=== PATIENT | female | born 1995 | race Caucasian/White ===

== ENCOUNTER 2019-01-10 14:41 | Emergency (ER) | payer SELFPAY ==
[2019-01-10] VITALS (7 sets, daily range): BP systolic 119–149; BP diastolic 56–75; PULSE 64–129; RESP 15–18; TEMP 37.5–39.3; O2SAT 95–100; BMI 36.8
--- NOTE | 2019-01-10 15:19 | US_ITS ---
STUDY: FIRST TRIMESTER OBSTETRICAL ULTRASOUND REASON FOR EXAM: Female, 23 years old. Low back pain LMP: TECHNIQUE: Transvaginal TECHNICAL QUALITY: Adequate. PRIOR ULTRASOUND: None. FINDINGS: There is a very small linear fluid density within the endometrial canal in association with soft tissue density possibly representing focal adhesion.. No well-defined intrauterine gestational sac is noted. The uterus measures 9.6 x 6.3 x 5.6 cm. There is no demonstrated uterine fibroid. The cervix is closed. The right ovary measures 2.5 x 1.6 x 1.6 cm. There is no right ovarian cyst. There is no visualized right adnexal mass or complex lesion. The left ovary measures 3 x 2.2 x 2.3 cm. There is a questionable cystic structure but no definitive evidence for ectopic There is no visualized left adnexal mass or complex lesion. There is minimal fluid in the cul de sac. US/Transvaginal w/Preg US IMPRESSION: No definitive evidence for intrauterine gestation or ectopic however would recommend clinical correlation and follow-up studies minimal fluid in the cul-de-sac Electronically Signed: Chris Prado MD at 17:56 EST , Service support ,
--- NOTE | 2019-01-10 15:22 | ED.VISSUMM ---
- ER Visit Summary Date of Service: 01/10/19 Chief Complaint: Not feeling well History of Present Illness: The patient is a 23 F presenting stating that she has not felt well for the past couple of days. She went to urgent care today and they sent her into the ED for concern of kidney infection. She states that she has had dysuria and hematuria. She had fever at home. She has had nausea vomiting. She denies abdominal or pelvic pain. She has low back pain. She recently found out that she is . Her last period was December 12. She is (twins). Physical Examination: Vitals are stable. Temperature 99.5. Alert no acute distress. HEENT exam is unremarkable. Neck is supple. No meningismus Lungs are clear and equal bilaterally. Heart is regular rate and rhythm. Abdomen is soft nontender nondistended. No guarding or rebound. Back: Nontender Extremities are unremarkable. Skin is warm and dry. No focal neurologic deficit. Remainder of exam is unremarkable. Emergency Department Course and Treatment: Patient was given IV fluids, Zofran. Repeat temperature 102.5. She was given Tylenol. Urinalysis shows over 100 white blood cells, 0 red blood cells. Blood type is B-. She has had no vaginal bleeding. HCG quant is 331. Pelvic ultrasound shows no definitive evidence for intrauterine gestation or ectopic however would recommend clinical correlation and follow-up studies minimal fluid in the cul-de-sac. Patient is feeling improved other than headache. She was given Reglan Benadryl IV and additional IV fluids with improvement. Urine culture was sent. She was given Rocephin IV. On reevaluation, she is resting comfortably and is feeling improved. She was given prescription for Keflex. 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 Advised return to ED if worsening complaints. Disposition: Discharge home Impression: Pyelonephritis, This note was generated with [employer] dictation software. It may contain incorrect words, spelling, and punctuation that were not noted in review of the chart prior to signing ED Disposition - Plan for ED Patient: Instructions: ED UTI Cystitis Female Prescriptions: Cephalexin [Keflex] 500 mg PO Q6 #40 capsule Referrals: [facility] Doctor,Out of [NON-STAFF] -
[2019-01-10 16:03] LABS: Mucous, Urine 0 SEEN /hpf (<or=2+); Red Blood Cells-Urine 0 SEEN /hpf (0-5)
[2019-01-10] MEDS: 0.9% Normal Saline 1,000 ML 999 ML IV ×2 (16:03→18:00)
[2019-01-10] MEDS: Ondansetron 4 MG/2 ML Vial IV (16:03)
[2019-01-10 16:06] LABS: Color, Urine Yellow (Yellow); Glucose, Dipstick Normal (Normal); Ketone-Dipstick Negative (Negative); Leukocyte Esterase-Dipstick 500 /ul (Negative); Nitrite-Dipstick Positive (Negative); Occult Blood-Urine 150 /ul (Negative); Protein-Dipstick 100 mg/dl (Negative); Urine Bilirubin Dipstick Negative (Negative); Urine Clarity Cloudy (Clear); Urine Urobilinogen 1 mg/dl (Normal)
[2019-01-10 16:47] LABS: Bacteria 1+ /hpf (None Seen); Squamous Epithelial Cells - UA 0-5 SEEN /hpf (5-10); White Blood Cells >100 SEEN /hpf (0-5)
[2019-01-10 17:11] LABS: hCG Titer Quant., Serum 331 mIU/mL (<9 non-preg)
[2019-01-10] MEDS: Acetaminophen 500 MG Tablet 1000 MG PO (17:13)
--- NOTE | 2019-01-10 18:30 | ED.DEP ---
ED Disposition - Plan for ED Patient: Instructions: ED UTI Cystitis Female Prescriptions: Cephalexin [Keflex] 500 mg PO Q6 #40 capsule Referrals: [facility] Doctor,Out of [NON-STAFF] -
[2019-01-10] MEDS: Metoclopramide 10 MG/2 ML Vial 5 MG IV (18:50)
[2019-01-10] MEDS: DiphenhydrAMINE 50 MG/ML Syringe 25 MG IV (18:50)
[2019-01-10] MEDS: Ceftriaxone 1 GM/50 ML BAG IV (18:58)
== END 2019-01-10 19:50 | disposition home or self-care (01) ==
LOC: ED 15:35
PROVIDERS: Emergency Provider Emergency Medicine
DX: O23.00 Infections of kidney in pregnancy, unspecified trimester (principal); O99.89 Other specified diseases and conditions complicating pregnancy, childbirth and the puerperium; R51 Headache; Z3A.00 Weeks of gestation of pregnancy not specified
CPT/HCPCS: 76817; 81001; 84702; 86900; 86901; 87086; 87088; 87186; 96361; 96374; 96375; 99282; J7030; A4216; J2405

== ENCOUNTER → 2022-09-02 | Outpatient (CLI) | payer SELFPAY ==
--- NOTE | 2022-09-02 09:00 | PET_ITS ---
EXAMINATION: FDG PET-CT INDICATIONS: A 27-year-old female with a history of thyroid carcinoma presenting for restaging examination. COMPARISON EXAMINATION: None available INDEX LESION SIZE SUV INTERPRETATION Right upper lung, right upper lobe 40.6 mm 2.5 Fulfills quantitative criteria for viable neoplasm with single point technique, histopathologic analysis recommended. Right lung, right upper lobe 1.1 max Quantitative criteria for viable neoplasm are not fulfilled. TECHNIQUE: Following the intravenous administration of 11.40 mCi of F-18 deoxyglucose via the right hand, multiplanar image acquisitions of the head, neck, chest, abdomen and pelvis to level of mid-thigh, lower extremities obtained at one hour post radiopharmaceutical administration contemporaneously interpreted with the current CT of the head, neck, chest, abdomen and pelvis to level of mid-thigh, lower extremities dated 09/02/22 via coregistration reveal: SERUM GLUCOSE LEVEL: 106 mg/dl. HEIGHT: 69 inches. WEIGHT: 280 lbs. FINDINGS: Head/Neck: Prominent radiopharmaceutical concentration is defined in the anterior neck, laryngeal structures which appears associated with the arytenoid cartilage and cricopharyngeus musculature without evidence of soft tissue thickening commensurate with normal physiologic uptake. The visualized portion of the cerebral cortical-subcortical structures demonstrate symmetric and preserved glucose metabolism. CHEST: Increased radiopharmaceutical concentration is identified in the right suprahilar region, right upper lobe anteromedially. The calculated maximum standard uptake value is 2.5. The maximum axial diameter of the metabolic, morphologic abnormality is 40.6 mm. A second parenchymal density defined in the right upper anterior lung, right upper lobe demonstrates a maximum calculated standard uptake value of 1.1. Prominent radiopharmaceutical concentration is identified in the left ventricular myocardium commensurate with the [place]. Pertinent chest CT findings are as follows. There are no additional parenchymal densities-nodules defined in the right and left hemithorax demonstrating quantitatively significant increased FDG uptake. Right and left axillary soft tissue densities with fatty hilus are nonglucose avid. There is atherosclerotic calcification defined in the thoracic aorta without evidence of dilatation-aneurysm formation. Coronary arterial calcification is observed. Abdomen/Pelvis: Normal physiologic distribution of the radiopharmaceutical is apparent in the hepatic (0.55) and splenic parenchyma, both renal units, bladder and visualized intestinal tract. Diffuse radiopharmaceutical concentration is noted in all four quadrants of the abdomen and pelvis. Bilateral inguinal soft tissue densities with fatty hilus are ametabolic. The adrenal glands have a normal CT appearance. Pertinent abdomen and pelvis CT findings are as follows. There is atherosclerotic calcification defined in the abdominal aorta without evidence of dilatation-aneurysm formation. Abdominal and pelvic arterial calcification is observed. Skeletal: There is no visualized sclerotic-lytic changes manifest on review of the appendicular-axial skeletal structures. PET/PET/CT Tumor WB Subs IMPRESSION: 1. Increased FDG concentration noted in the right upper medial pulmonary parenchyma right upper lobe fulfills quantitative criteria for viable neoplasm with single point technique. Histopathologic analysis is recommended. 2. The second focus of enhanced tracer uptake noted in the right upper lung field does not fulfill quantitative criteria for viable neoplasm. Electronic Signature Dennis Mccrary D.O. Accurate Quantification of SUVs for this report are calculated using the exclusive [employer]. (U.S. Patent No. [id number]). Standardization and correction of the FDG SUV metric via [employer] technology allow for vendor non-specific objective quantitative examination comparison and optimization of the sensitivity and specificity of the FDG PET-CT examination. Electronically Signed: Dennis Mccrary, at 8:26 EDT ,
== END | disposition home or self-care (01) ==
DX: E89.0 Postprocedural hypothyroidism (principal)
CPT/HCPCS: 78816; A9552

== ENCOUNTER → 2022-09-15 | Outpatient (CLI) | payer SELFPAY ==
[2022-09-15 12:01] LABS: Absolute Lymphocyte Count 2.39 X10^3/uL (0.83-4.51); Basophil# 0.03 X10^3/uL; Basophil% 0.4 % (0-1); Eosinophil# 0.28 X10^3/uL; Eosinophils% 3.4 % (0-5); Hematocrit 38.5 % (37-47); Lymphocyte # 2.39 X10^3/ul (0.83-4.51); Lymphocyte % 28.7 % (19-41); Mean Corp Hgb Conc 31.2 g/dL (32-36); Mean Corpuscular Hgb 26.1 pg (27.0-32.0); Mean Corpuscular Volume 83.7 fL (81-99); Mean Platelet Vol. 9.1 fl (6.2-12.0); Monocyte# 0.65 X10^3/uL; Monocyte% 7.8 % (0-10); NRBC Flagged by Analyzer 0 % (0-5); Neutrophil # 4.95 X10^3/uL (2.7-7.7); Neutrophil % 59.5 % (47-70); Platelet Count 345 K/mm3 (150-450); RBC Distribution Width CV 14.5 % (11.6-14.6); RBC Distribution Width SD 43.7 fl (35.1-43.9); White Blood Count 8.3 K/mm3 (4.4-11.0)
[2022-09-15 12:14] LABS: Partial Thromboplast Time 28.1 Seconds (24.1-36.2)
== END | disposition home or self-care (01) ==
PROVIDERS: Referring Provider Internal Medicine Critical Care Medicine; Visit Provider Internal Medicine Critical Care Medicine
DX: R59.0 Localized enlarged lymph nodes (principal); Z85.850 Personal history of malignant neoplasm of thyroid
CPT/HCPCS: 36415; 85025; 85610; 85730

== ENCOUNTER → 2022-09-17 | Outpatient (CLI) | payer MEDICAID, SELFPAY ==
--- NOTE | 2022-09-17 15:58 | CT_ITS ---
EXAM: CT CHEST WITH INTRAVENOUS CONTRAST CLINICAL INDICATION: Right mediastinal mass TECHNIQUE: Helically acquired images were obtained of the chest with intravenous contrast. This CT exam was performed using one or more of the following dose reduction techniques: automated exposure control, adjustment of the mA and/or kV according to patient size, and/or use of iterative reconstruction technique. This report was created using [employer] report generation technology. CONTRAST: IV 100mL Isovue-300 RADIATION DOSE: CTDIvol = 16.51 mGy, DLP = 726.44 mGy-cm COMPARISON: pet Sep 02 2022 10:11am FINDINGS: LUNGS AND PLEURAL SPACES: There is a 3 mm right lower lobe nodule. SE:2 IM: 66. Multilobulated mass of the right upper lobe. Se 2 IM: 45. It is 12 mm. Right hilar mass. This measures 29 x 36 mm. No pleural effusion or thickening. No pneumothorax. HEART: Unremarkable. Heart size is normal. No pericardial effusion. No significant coronary artery calcifications. MEDIASTINUM: Unremarkable. No mediastinal or hilar adenopathy. Esophagus is unremarkable. No hiatal hernia. THYROID: Unremarkable. No thyroid lesions. BONES/JOINTS: Unremarkable. No suspicious lytic or blastic abnormality. VASCULATURE: Unremarkable. Thoracic aorta is non-dilated. No thoracic aortic dissection. No obvious central pulmonary embolism although this study was not performed with the pulmonary embolism protocol. CT/Chest WITH Contrast IMPRESSION: In correlation with recent PET scan, there is confirmation of a right hilar mass and a 12 mm right upper lobe mass. These are concerning for neoplasm. Electronically Signed: Gil Mclaughlin MD at 16:39 EST ,
== END | disposition home or self-care (01) ==
PROVIDERS: Referring Provider Internal Medicine Critical Care Medicine; Visit Provider Internal Medicine Critical Care Medicine
DX: R59.0 Localized enlarged lymph nodes (principal)
CPT/HCPCS: 71260; Q9967; A4216

== ENCOUNTER 2022-10-02 09:12 | Day surgery (SDC) | payer MEDICAID, SELFPAY ==
[2022-10-02] VITALS (7 sets, daily range): BP systolic 93–135; BP diastolic 52–79; PULSE 58–76; RESP 14–18; TEMP 36.3–36.7; O2SAT 95–100; BMI 41.8
--- NOTE | 2022-10-02 | ASPIG_PTH ---
PATIENT: BLANCA GAMEZ LOC: EN U#:[id number] AGE/SX: 27/F ROOM: RE10/02/[address]: Dr. Mrois Miranda MD : 1995 BED: DIS: 10/02/2022 SPEC #: [id number] RECD: 10/02/22 13:28 STATUS: LILIANA PETROS #: [id number] RAMIRO: 10/02/22 00:[address]: Moris Miranda DEPT: CYTOLOGY RECD BY: Parminder Pisano Tissues: A - Lung, NOS B - Lung, NOS C - Lung, NOS D - Lung, NOS E - Lung, NOS F - Lung, NOS Procedures: FNA Specimen Adequacy Special Stain Group II Surgery Specimen Level IV Cytology Other HEADER OPERATION: EBUS PRE-OP DIAGNOSIS: Right hilar mass TISSUE SUBMITTED: A - EBUS, TBNA, site 10R #1, B - EBUS, TBNA, site 10R #2, C - EBUS, TBNA, site 10R #3, D - EBUS, TBNA, site 10R #4, E - EBUS, TBNA, site 10R, F - Bronchial washing DIAGNOSIS CYTOLOGY A. EBUS, TBNA, site 10R #1 (smears): Negative for malignant cells. Predominantly respiratory epithelial cells and rare macrophages are noted. B. EBUS, TBNA, site 10R #2 (smears): Lymphocytes present. Respiratory epithelial cells are also noted. Negative for malignant cells. Adequate for evaluation. C. EBUS, TBNA, site 10R #3 (smears): Lymphocytes present. Negative for malignant cells. Adequate for evaluation. D. EBUS, TBNA, site 10R #4 (smears): Predominantly respiratory epithelial cells. Negative for malignant cells. E. EBUS, TBNA, site 10R (fluid and cell block): Negative for malignant cells. See cytology study and comment. F. Bronchial wash fluid (cytospin and cell block): Negative for malignant cells. See cytology study. SJ:stewart 10/05/2022 COMMENT The specimen is evaluated at the time of EBUS by Dr. Gan. Rapid OnSite Evaluation: A. EBUS, TBNA, site 10R #1: Negative for malignant cells. Respiratory epithelial cells only. B. EBUS, TBNA, site 10R #2: Lymphocytes present. Respiratory epithelial cells are also noted. Negative for malignant cells. Adequate for evaluation. C. EBUS, TBNA, site 10R #3: Lymphocytes present. Negative for malignant cells. Adequate for evaluation. D. EBUS, TBNA, site 10R #4: Predominantly respiratory epithelial cells. Negative for malignant cells. E. Flow cytometry study from [facility] was canceled due to low cell yield. As per EMR, the patient has h/o thyroid cancer, s/p total thyroidectomy. Correlation with clinical, radiologic findings and appropriate follow up are necessary. CYTOLOGY STUDY Slides are reviewed. E. The specimen consists of respiratory epithelial cells and lymphocytes. F. The specimen consists of predominantly macrophages, neutrophils and a few respiratory epithelial cells. CYTOLOGY GROSS A - Received labeled with the patient's name and and designated EBUS, TBNA, site 10R #1. The specimen consists of two stained smears for COCO (Rapid OnSite Evaluation). B - Received labeled with the patient's name and and designated EBUS, TBNA, site 10R #2. The specimen consists of two stained smears for COCO. C - Received labeled with the patient's name and and designated EBUS, TBNA, site 10R #3. The specimen consists of two stained smears for COCO. D - Received labeled with the patient's name and and designated EBUS, TBNA, site 10R #4. The specimen consists of two stained smears for COCO. E - Received in RPMI is 20 ml of pink, needle rinsed fluid labeled with the patient's name and and designated EBUS, TBNA, site 10R. Half of specimen is submitted for flow cytometry study. The rest of the specimen is submitted for cell block preparation. F - Received in RPMI is 20 ml of pink, needle rinsed fluid labeled with the patient's name and and designated bronchial washing. The specimen is submitted for cytology study including cell block preparation. / SJ:rg 10/02/2022 TC:5 CPT: 40730 x2, 59012, 08123, 54162, 60650 x3
[2022-10-02 09:34] LABS: Internal QC Validated? YES +Cl - CLEAR BKGD; Pregnancy, Urine Negative Negative
[2022-10-02] MEDS: Lactated Ringers 1,000 ML 15 ML IV (09:52)
--- NOTE | 2022-10-02 09:59 | HP.PCM_ITS ---
History and Physical Date of Admission: 10/02/22 Patient seen and evaluated independently prior to proceeding with EBUS. No significant change from below. CT of the chest does show a large right hilar mass. Labs were reviewed and acceptable. We will proceed with biopsies as planned. Assessment and Plan (1) Mediastinal adenopathy: ?Status:?Acute (2) History of thyroid cancer: ?Status:?Acute ? ? ? Orders: Orders Partial Thromboplast Time Today R59.0 - Localized enlarged lymph nodes, Z85.850 - Personal history of malignant neoplasm of thyroid ? Prothrombin Time w/INR Today R59.0 - Localized enlarged lymph nodes, Z85.850 - Personal history of malignant neoplasm of thyroid ? CBC W/Diff, Automated Today R59.0 - Localized enlarged lymph nodes, Z85.850 - Personal history of malignant neoplasm of thyroid ? Chest WITH Contrast Today R59.0 - Localized enlarged lymph nodes ? Plan Unclear etiology.? Lymph node does not appear to be significantly avid, so there is some concern for nondiagnostic biopsy.? There is also no previous imaging studies for comparison.? After discussion with radiology, will obtain a CTA of the chest before evaluating whether EBUS is a viable alternative.? Patient understands that a biopsy would likely be necessary, so coagulation studies will be obtained.? Pending CTA of the chest, patient may have an EBUS.? This was reviewed in detail including the risks, benefits and alternatives and patient is agreeable if it is found to be the best approach.? I do agree with radiology that a CT-guided approach would be very difficult.? Pending relationship with blood vessels, may have to evaluate whether patient would need a thoracic surge ry evaluation versus EBUS. Obtain coagulation studies and CT with contrast.? Further recommendations pending CT results. Plan Details Follow Up: ? ? 2 Weeks (BWA) HPI ABNORMAL PET Details: Patient is a 27-year-old female who presents for evaluation secondary to an abnormal PET scan. Patient reports that she was diagnosed with thyroid cancer approximately 2 years ago.? Patient states she had a total thyroidectomy at that time with good response.? Patient has been monitored from a physician in [place].? Patient states that she is in the process of moving to [place], but had gone back to see her physician.? Patient states that she got routine lab work including a TSH that showed significant elevation.? This subsequently led to a PET scan that was read as having an enhanced right hilar lymph node.? Patient was originally scheduled for CT-guided biopsy, but this was thought to be inappropriate given the hilar nature.? Patient was sent to pulmonary for possible EBUS evaluation. From a subjective standpoint, patient states that she feels my normal.? Patient is not reporting any increase in cough, fever, chills or unintentional weight loss.? Patient has not had any chest pain or abdominal pain.? No hemoptysis has been reported.? Patient does not know all the details of her thyroid cancer, but does state that she was treated with a thyroidectomy and a radioactive dose of iodine.? Patient states that she has had a CT scan of the chest in the past, but thinks this has been over 2 years ago.? Patient has never had a pulmonary function test.? Patient denies any smoking or asbestos exposure.? Patient is not currently on any anticoagulation.? Patient is not reporting any herbal medication such as Talisha's wort. Review of systems otherwise negative from a constitutional, HEENT, respiratory, cardiovascular, GI, genitourinary, musculoskeletal, skin, neurologic, psychiatric and hematologic system unless stated above. Documentation reviewed prior to the office visit 15 pages of documentation were reviewed prior to the office visit.? Patient did have a primary care visit that was reviewed.? This did include laboratory data showing a normal CBC with no significant eosinophilia.? Patient also had a complete metabolic panel showing a normal bicarbonate renal and liver function.? Patient did have vitamin D deficiency.? Patient reportedly had a PET scan completed [facility] on 09/02/2022 showing increased uptake in the right upper medial pulmonary parenchyma. Patient's PET scan was personally reviewed.? Second opinion was also personally obtained from radiology.? Report suggests an avid right hilar lymph node.? However, there does not appear to have significant uptake on our review.? Patient does not have a CT with contrast available for review. Intake Vital Signs ? 09/15/2210:44 09/15/2210:44 Height 5 ft 9 in 5 ft 9 in Weight: ? 129.784 kg BMI ? 42.2 BP ? 143/87 H Blood Pressure Location ? Rt radial Position ? Sitting Respiration ? 18 Pulse ? 82 Pulse Source ? Monitor Temp ? 36.8 C Temperature Source ? Temporal Artery Pulse Oximetry (%) ? 98 Oxygen Delivery Method ? 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 Moris Miranda MD) History of thyroid cancer Social History Smoking Status:? Never smoker Exam Const Constitutional: Positive conversant, cooperative, in no acute respiratory distress, healthy appearing, well developed, well nourished and good hygiene Head Head: Yes normocephalic, Yes atraumatic and No cyanosis of lips/distal nose Eyes Eye: Positive clear conjunctiva; Negative nystagmus, scleral abnormality or cataract present Ears Ear: Positive hearing normal and external ears normal; Negative hard of hearing Neck Neck: Positive normal visual inspection, full ROM and trachea midline; Negative lymphadenopathy or JVD Chest Wall Chest: Positive normal inspection of the chest and symmetric chest movement; Negative crepitus or tenderness Resp lung sounds: Positive clear to auscultation, good air exchange and normal expiratory time; Negative wheezes, wheeze present on forced exhalation, rhonchi, rales, dullness or use of accessory muscles Cardio Cardiac: Positive regular rate, regular rhythm, S1 normal and S2 normal; Negative murmur, rub or gallop Musc Musculoskeletal: Positive steady gait; Negative using an assistive device for ambulation, kyphosis or scoliosis Skin Pulmonary Skin Exam: Positive intact; Negative lesion, rash, ulcers or erythema Pulses Pulse: Yes radial pulses present Extremities Extremities: Yes capillary refill normal, No clubbing, No cyanosis and No edema Neuro Neurologic: Yes no focal neuro deficits, Yes conversant, Yes cooperative, Yes normal cognition, Yes normal coordination, Yes normal concentration and Yes understands questions Lymph Lymphatic: No lymphadenopathy Psych Appearance: Positive grossly normal Mental Status: Positive mental status grossly normal Mood: Positive congruent mood Affect: Positive normal affect
[2022-10-02] MEDS: Lidocaine Jelly 2% 20 ML Syringe (URO-JET) 1 APPLIC (10:00)
--- NOTE | 2022-10-02 11:15 | OP.BRONCH_ITS ---
Patient Name: Shona Levin Procedure Date: 10/02/2022 9:45 AM Date of : 1995 Age: 27 Procedure: Bronchoscopy Indications: Mediastinal adenopathy Providers: Moris Miranda MD Referring MD: Moris Miranda MD Medicines: Lidocaine 2% applied to the tracheobronchial tree 6 mL, General Anesthesia Complications: No immediate complications Procedure: Pre-Anesthesia Assessment: - A History and Physical has been performed. The patient's medications, allergies and sensitivities have been reviewed. - The risks and benefits of the procedure and the sedation options and risks were discussed with the patient. All questions were answered and informed consent was obtained. - Pre-procedure physical examination revealed no contraindications to sedation. - ASA Grade Assessment: II - A patient with mild systemic disease. After I obtained informed consent, the scope was passed under direct vision. Throughout the procedure, the patient's blood pressure, pulse, and oxygen saturations were monitored continuously. The ultrasound bronchoscope was introduced through the mouth, via laryngeal mask airway and advanced to the tracheobronchial tree. The bronchoscope was introduced through the mouth and advanced to the clarence. The procedure was accomplished without difficulty. The patient tolerated the procedure well. Findings: The laryngeal mask airway is in good position. The vocal cords appear normal. The subglottic space is normal. The trachea is of normal caliber. The clarence is sharp. The tracheobronchial tree was examined to at least the first subsegmental level. Bronchial mucosa and anatomy are normal; there are no endobronchial lesions, but some thick mucoid secretions were noted. These were sent for culture. The scope was withdrawn and replaced with the EBUS bronchoscope to accomplish the ultrasound examination. Lymph Nodes: An endobronchial ultrasound endoscope was utilized to systematically examine the right hilar region (level 10R) in order to assist with guiding the biopsy needle. Lymph node sizing was performed via endobronchial ultrasound. Sampling by transbronchial needle aspiration was also performed using an Olympus EBUS-TBNA 19 gauge needle in the right hilar region (level 10R) and sent for routine cytology and flow cytometry. - The 10R (hilar) node was [address] Five samples with the needle were obtained. Lymph Nodes: Lymph Nodes: Rapid On-Site Evaluation (COCO): The cellularity of the specimen was adequate in the right hilar region (level 10R). Impression: - Mediastinal adenopathy - The airway examination was normal. - Endobronchial ultrasound was performed. - Lymph node sizing and sampling was performed. Tissue was obtained from this exam. The preliminary diagnosis is consistent with benign inflammatory changes. - Rapid On-Site Evaluation (COCO): The cellularity of the specimen was adequate in node level 10R. Recommendation: - The patient will be observed post-procedure, until all discharge criteria are met. - Follow up with bronchoscopist in one week. - Await culture and cytology results. Procedure Code(s): --- Professional --- 60053, Bronchoscopy, rigid or flexible, including fluoroscopic guidance, when performed; with endobronchial ultrasound (EBUS) guided transtracheal and/or transbronchial sampling (eg, aspiration[s]/biopsy[ies]), one or two mediastinal and/or hilar lymph node stations or structures Diagnosis Code(s): --- Professional --- R59.0, Localized enlarged lymph nodes R09.89, Other specified symptoms and signs involving the circulatory and respiratory systems CPT copyright 2017 [employer]. All rights reserved. The codes documented in this report are preliminary and upon [place] operator review may be revised to meet current compliance requirements. MD Moris Munoz MD 10/02/2022 11:13:51 AM This report has been signed electronically. Number of Addenda: 0 Note Initiated On: 10/02/2022 9:45 AM
[2022-10-02] MEDS: Ipratropium/Albuterol Sulfate 3 ML AMPUL.NEB INHALATION (11:32)
[2022-10-02 13:47] LABS: Lymphocytes 29 %; Macrophages 2 %; Mesothelial Cells 10 %; Monocytes 3 %; Neutrophil (Segs) 56 %
[2022-10-02 13:48] LABS: Appearance/Body Fluid CLOUDY; Color/Body Fluid COLORLESS; Red Cell Count/Body Fluid 64 /mm3; Source- Body Fluid BRONCHIAL LAVAGE
[2022-10-02 13:50] LABS: White Blood Count/Body Fluid 3216 /mm3
[2022-10-02 13:51] LABS: Body Fluid QC Type(s) BF1Q
[2022-10-05 12:54] LABS: Pathologist Comment/Body Fluid Reviewed
== END 2022-10-02 12:56 | disposition home or self-care (01) ==
LOC: EN 09:13 → AC 09:15
PROVIDERS: Anesthesiology; Referring Provider Internal Medicine Critical Care Medicine; Visit Provider Internal Medicine Critical Care Medicine
PROC: BB4BZZZ Ultrasonography of Pleura (ICD-10-PCS; CPT 31652; principal; 2022-10-02 09:30)
DX: R59.0 Localized enlarged lymph nodes (principal); E55.9 Vitamin D deficiency, unspecified; E89.0 Postprocedural hypothyroidism; Z79.890 Hormone replacement therapy; Z85.850 Personal history of malignant neoplasm of thyroid
CPT/HCPCS: 31652; 31629; 81025; 87070; 87077; 87186; 87205; 88161; 88172; 88305; 88313; 89050; 94640; J7120; J2405

== ENCOUNTER → 2022-12-07 | Outpatient (CLI) | payer MEDICAID, SELFPAY ==
--- NOTE | 2022-12-07 12:51 | CT_ITS ---
STUDY: CT CHEST WITHOUT CONTRAST REASON FOR EXAM: Female, 27 years old. Follow-up of right upper lobe nodule. RADIATION DOSAGE (If Supplied By Facility): CTDIvol = ( 21.77 ) mGy, DLP = ( 566.83 ) mGycm TECHNIQUE: Transaxial imaging was performed without the administration of intravenous contrast material. Multiplanar coronal and sagittal images were reformatted. Individualized dose optimization techniques were used for this CT. COMPARISON: Comparison is made with prior examination of 09/17/2022. FINDINGS: CHEST Stable 1 cm slightly spiculated nodule in the right upper lobe as seen on axial image #37 and coronal image #81. Stable 2 mm noncalcified nodule in the peripheral aspect of the right lower lobe as seen on axial image #53. There is no demonstrated pleural abnormality. Normal heart and pericardium. Normal mediastinum. Stable 3.4 cm right hilar lymph adenopathy. Normal unenhanced pulmonary arteries. Normal aorta arch and descending thoracic aorta. Normal osseous structures. There is no demonstrated abnormality of the visualized upper abdomen. CT/Chest without Contrast IMPRESSION: Stable when sinus likely suspected nodule in the right upper lobe as well as enlargement of the right hilar lymph node measuring 3.4 cm. Electronically Signed: Beto Ku MD at 13:37 EST ,
== END | disposition home or self-care (01) ==
LOC: CT 12:50
PROVIDERS: Referring Provider Internal Medicine Critical Care Medicine; Visit Provider Internal Medicine Critical Care Medicine
DX: R59.0 Localized enlarged lymph nodes (principal)
CPT/HCPCS: 71250

== ENCOUNTER 2022-12-15 09:11 | Outpatient (CLI) | payer MEDICAID, SELFPAY | END 2022-12-15 23:59 | disposition home or self-care (01) | DX: Z13.29 Encounter for screening for other suspected endocrine disorder (principal) | CPT/HCPCS: 36415; 84436; 84443 ==